=== PATIENT | male | born 2000 | race American Indian/Alaskan Native ===

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

== ENCOUNTER 2022-02-13 15:04 | Emergency (ER) | payer OTHER ==
[~2022-02-13] VITALS: Ht 182.9 cm; Wt 74.2 kg
== END 2022-02-13 18:10 | disposition home or self-care (01) ==
LOC: ED 15:04
DX: S61.011A Laceration without foreign body of right thumb without damage to nail, initial encounter (principal); W26.9XXA Contact with unspecified sharp object(s), initial encounter; Z23 Encounter for immunization; Y92.828 Other wilderness area as the place of occurrence of the external cause; Z91.09 Other allergy status, other than to drugs and biological substances
CPT/HCPCS: 90715

== ENCOUNTER 2022-03-25 15:46 | Emergency (ER) | payer OTHER ==
[~2022-03-25] VITALS: Ht 182.9 cm; Wt 81.7 kg
== END 2022-03-25 18:48 | disposition home or self-care (01) ==
LOC: ED 15:46
DX: S20.211A Contusion of right front wall of thorax, initial encounter (principal); S30.1XXA Contusion of abdominal wall, initial encounter; F10.129 Alcohol abuse with intoxication, unspecified; W55.19XA Other contact with horse, initial encounter; Z20.822 Contact with and (suspected) exposure to COVID-19
CPT/HCPCS: 36415; 70450; 71260; 72125; 74177; 80053; 82150; 82553; 83605; 83690; 85025; 86850; 86900; 86901; 87502; C9803; G0480; J1170; J2405; Q9967; U0003